=== PATIENT | male | born 1935 | race Caucasian/White ===

== ENCOUNTER 2016-05-06 16:04 | Emergency (ER) | payer MEDICARE, BC ==
[2016-05-06 14:35] LABS: BASO % 0.6 % (0-2); EOS % 2.5 % (0-7); EOSINOPHIL ABSOLUTE COUNT 0.1 tho/cmm (0.0-0.7); HCT-HEMATOCRIT 40.4 % (36.0-53.5); HGB-HEMOGLOBIN 13.4 gm/dl (13.5-17.0); IMMATURE GRANULOCYTES ABSOLUTE 0.03 tho/cmm (0-0.03); IMMATURE GRANULOCYTES PERCENT 0.6 % (0-0.3); LYMPH % 34.3 % (20-45); LYMPH ABSOLUTE COUNT 1.8 tho/cmm (0.8-4.5); MCH (MEAN CORPUSCULAR HGB) 31.6 pg (28.0-32.0); MCHC MEAN CORPUSCULAR HGB CONC 33.2 % (32.0-36.0); MCV (MEAN CELL VOLUME) 95.3 fl (82.0-96.0); MEAN PLATELET VOLUME 10.3 cmc (9.4-12.4); MONO % 8.8 % (0-12); MONOCYTE ABSOLUTE COUNT 0.5 tho/cmm (0.0-1.2); NEUTROPHIL ABSOLUTE COUNT 2.8 tho/cmm (1.6-8.0); NEUTROPHIL-AUTOMATED 2.8 tho/cmm (1.6-8.0); NEUTROPHILS % 53.2 % (40-80); PLATELET COUNT 186 tho/cmm (150-450); RED BLOOD COUNT 4.24 mil/cmm (4.40-5.70); RED CELL DISTRIBUTION WIDTH 12.5 % (12.4-16.4); WHITE BLOOD COUNT 5.3 tho/cmm (4.0-10.0)
[2016-05-06 14:44] LABS: INR 3.1 INR (0.9-1.1); PROTHROMBIN TIME 37.6 SECONDS (9.0-13.6)
[2016-05-06 14:57] LABS: ALBUMIN 3.5 g/dl (3.5-5.0); ALKALINE PHOSPHATASE 68 U/L (33-138); ALT/SGPT 23 U/L (12-78); BILIRUBIN,TOTAL 0.4 mg/dl (0.0-1.5); BLOOD UREA NITROGEN 12 mg/dl (6-24); CALCIUM 8.6 mg/dl (8.5-10.5); CARBON DIOXIDE-VENOUS 29 mmol/L (22-32); CHLORIDE 106 mmol/l (96-110); CREATININE 1.14 mg/dl (0.60-1.30); GLUCOSE 107 mg/dL (70-110); SODIUM 141 mmol/L (135-145); eGFR VALUE FOR BLACK 71 mL/Min
[2016-05-06 14:58] LABS: ANION GAP 10 mmol/L (0-20); AST/SGOT 24 U/L (10-40)
[~2016-05-06 16:04] MED LIST: AMIODARONE HCL200 MG; ASPIRIN EC81 MG PO; ATORVASTATIN CA10 M1 PO; ATROVENT NS; BABY ASPIRIN81 MG PO; BETAPACE80 MG PO; CIPRO500 M1 PO; CLARITIN10 M6 PO; COREG12.5 M1 PO; COUMADIN4 MG; COUMADIN5 M2 PO; COUMADIN5 MG PO; COUMADIN6 MG; FLOMAX0.4 MG; LASIX20 M1 PO; LEVATOL20 MG; LIPITOR20 MG; LIPITOR20 MG PO; LOVENOX80 MG/0.8 SQ; METOPROLOL TART25 MG; METOPXL25 PO; NORVASC2.5 M1 PO; NORVASC2.5 MG; QUINAPRIL HCL20 M1 PO; QUINAPRIL HCL20 MG PO; QUINAPRIL10 MG; TERAZOSIN HCL1 M1 PO; TERAZOSIN1 MG PO; WARFARIN SODIUM4 MG; ZITHROMAX250 M1 PO
[2016-05-06] MEDS ORDERED: PROAIR HFA8.5 GM INH (16:28)
== END 2016-05-06 16:45 ==
LOC: EDMED 16:04
PROVIDERS: Emergency Medicine
DX: R55 Syncope and collapse (principal); S40.012A Contusion of left shoulder, initial encounter; J40 Bronchitis, not specified as acute or chronic; I48.91 Unspecified atrial fibrillation; Z79.01 Long term (current) use of anticoagulants; Z95.0 Presence of cardiac pacemaker; X58.XXXA Exposure to other specified factors, initial encounter
CPT/HCPCS: J7030

== ENCOUNTER 2016-05-13 21:39 | Emergency (ER) | payer MEDICARE, BC ==
[~2016-05-13 21:39] MED LIST changes: +PROAIR HFA8.5 GM INH
[2016-05-13] MEDS ORDERED: PROAIR HFA8.5 GM INH (23:01)
[2016-05-13] MEDS ORDERED: MUCINEX600 M1 PO (23:05)
[2016-05-14 00:10] LABS: INR 2.1 INR (0.9-1.1); PROTHROMBIN TIME 24.5 SECONDS (9.0-13.6)
[2016-05-14 00:11] LABS: BASO % 0.2 % (0-2); EOS % 1.8 % (0-7); EOSINOPHIL ABSOLUTE COUNT 0.1 tho/cmm (0.0-0.7); HCT-HEMATOCRIT 40.6 % (36.0-53.5); HGB-HEMOGLOBIN 13.5 gm/dl (13.5-17.0); IMMATURE GRANULOCYTES ABSOLUTE 0.01 tho/cmm (0-0.03); IMMATURE GRANULOCYTES PERCENT 0.2 % (0-0.3); LYMPH % 24.7 % (20-45); LYMPH ABSOLUTE COUNT 1.4 tho/cmm (0.8-4.5); MCH (MEAN CORPUSCULAR HGB) 31.9 pg (28.0-32.0); MCHC MEAN CORPUSCULAR HGB CONC 33.3 % (32.0-36.0); MEAN PLATELET VOLUME 9.7 cmc (9.4-12.4); MONO % 8.1 % (0-12); MONOCYTE ABSOLUTE COUNT 0.5 tho/cmm (0.0-1.2); NEUTROPHIL ABSOLUTE COUNT 3.6 tho/cmm (1.6-8.0); NEUTROPHIL-AUTOMATED 3.6 tho/cmm (1.6-8.0); PLATELET COUNT 181 tho/cmm (150-450); RED BLOOD COUNT 4.23 mil/cmm (4.40-5.70); RED CELL DISTRIBUTION WIDTH 12.5 % (12.4-16.4); WHITE BLOOD COUNT 5.6 tho/cmm (4.0-10.0)
[2016-05-14 00:22] LABS: ANION GAP 10 mmol/L (0-20); BLOOD UREA NITROGEN 15 mg/dl (6-24); CALCIUM 8.9 mg/dl (8.5-10.5); CARBON DIOXIDE-VENOUS 33 mmol/L (22-32); CHLORIDE 105 mmol/l (96-110); GLUCOSE 106 mg/dL (70-110); POTASSIUM 4.7 mmol/L (3.7-5.1); SODIUM 143 mmol/L (135-145); eGFR VALUE FOR BLACK 67 mL/Min
[2016-05-14] MEDS ORDERED: VIBRAMYCIN100 M1 PO (00:51)
== END 2016-05-14 01:10 ==
LOC: EDMED 21:39
PROVIDERS: Emergency Medicine
DX: R05 Cough (principal); I48.91 Unspecified atrial fibrillation; I10 Essential (primary) hypertension; Z85.46 Personal history of malignant neoplasm of prostate; Z95.1 Presence of aortocoronary bypass graft; Z95.0 Presence of cardiac pacemaker; Z95.2 Presence of prosthetic heart valve; Z98.890 Other specified postprocedural states; Z79.01 Long term (current) use of anticoagulants; Z79.82 Long term (current) use of aspirin; Z79.899 Other long term (current) drug therapy